=== PATIENT | female | born 1970 | race Hispanic/Latino ===

== ENCOUNTER 2021-08-23 05:50 | Day surgery (SDC) | payer BC ==
[2021-08-17 10:18] LABS: Blood Urea Nitrogen 8 mg/dL (7-17); Hemolysis Index 0
[2021-08-17 10:21] LABS: BUN/Creatinine Ratio 13
[2021-08-17 10:27] LABS: Basophils # (Auto) 0.1 K/mm3 (0.0-0.1); Eosinophils # (Auto) 0.1 K/mm3 (0.0-0.4); Eosinophils % (Auto) 2.2 % (0.0-4.3); Hematocrit 39.4 % (30.3-42.9); Hemoglobin 12.6 gm/dl (10.1-14.3); Lymphocytes # (Auto) 1.1 K/mm3 (1.2-5.4); Lymphocytes % (Auto) 38.7 % (13.4-35.0); Mean Corpuscular HGB Conc 32 % (30-34); Mean Corpuscular Volume 86 fl (79-97); Monocytes # (Auto) 0.2 K/mm3 (0.0-0.8); Monocytes % (Auto) 7.5 % (0.0-7.3); Platelet Count 289 K/mm3 (140-440); Red Blood Count 4.57 M/mm3 (3.65-5.03); Red Cell Distribution Width 15.2 % (13.2-15.2)
--- NOTE | 2021-08-17 13:11 | Anesthesia Consultation ---
Anesthesia Consult and Med Hx Date of service: 08/23/21 - Airway Anesthetic Teeth Evaluation: Good ROM Head & Neck: Adequate Mental/Hyoid Distance: Adequate Mallampati Class: Class I Intubation Access Assessment: Good - Pulmonary Exam CTA: Yes - Cardiac Exam Cardiac Exam: RRR - Pre-Operative Health Status ASA Pre-Surgery Classification: ASA1 Proposed Anesthetic Plan: General Nerve Block: TAP - Pulmonary Hx Smoking: No Hx Respiratory Symptoms: No - Cardiovascular System Hx Hypertension: No - Central Nervous System CVA: No Hx Psychiatric Problems: Yes (night terrors, panic attacks while sleeping) - Endocrine Hx Renal Disease: No Hx Liver Disease: No Hx Insulin Dependent Diabetes: No Hx Non-Insulin Dependent Diabetes: No Hx Thyroid Disease: No - Other Systems Hx Obesity: No - Additional Comments Anesthesia Medical History Comments: Hx delayed emergence.
--- NOTE | 2021-08-21 21:47 | History and Physical Report ---
History of Present Illness Date of examination: 08/14/21 History of present illness: Patient has been reassessed/reevaluated. H&P has been reviewed. No interval changes. This is a 51 years old female who presents with menstrual disorder. The symptoms began 4-6 months ago. Patient states she did not have menses 05/2021 o/w regular menses. She complains of heavy bleeding, lack of menses, dysmenorrhea, clotting, history of ovarian cysts, history of fibroids and cramping, but denies irregular menses, mid-cycle spotting, history of thyroid disease, history of PCOS, history of bleeding disorder, lightheadedness and fatigue. Menses started at age 18. Interval between menses is 28 days and 30 days. Menstrual flow lasts 7 days. Patient's work up has included hysterosonogram with a benign endometrial biopsy and revealed multiple leiomyomata and endometrial polyp. Patient's symptoms when present disrupts her normal daily activities. She is very anxious.Patient desires definitive treatment ] Vital Signs: Patient Profile: 51 Years Old Female LMP: 08/12/2021 Height: 71 inches Weight: 194 pounds BMI: 27.05 Temp: 97.4 degrees F BP sittin / 78 (left arm) Menstrual History: LMP (date): 08/12/2021 Current Method of Contraception: None Date of Last Pap Smear: 07/11/2021 Past History : 0 Term Births: 0 Premature Births: 0 Living Children: 0 Para: 0 Mult. Births: 0 Prev : 0 Aborta: 0 Elect. Ab: 0 Spont. Ab: 0 Ectopics: 0 Current Allergies (reviewed today): AMOXICILLIN (Critical) Past Medical History: Allergies-seasonal Endometrial polyps Fibroids Anxiety Past Surgical History: Hysteroscopy with D&C (2006) Hysteroscopy with D&C (2019) Family History Summary: Other Family Member - Has Family History of Ovarian Cancer - Entered On: 07/11/2021 Other Family Member - Has Family History Colon Cancer - Entered On: 07/11/2021 Other Family Member - Has Family History of Brain Cancer - Entered On: 07/11/2021 Other Family Member - Has Family History of Hyperlipidemia - Entered On: 07/11/2021 Other Family Member - Has Family History of Hypertension - Entered On: 07/11/2021 Social History: Marital Status: Children: 0 Occupation: [employer] Referred by [employer] Smoking History: Patient has never smoked. 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 Denies fever, chills, sweats, anorexia, weakness, malaise, weight loss and sleep disorder. Complains of menorrhagia, pelvic pain and painful periods. Denies vaginal discharge, incontinence, dysuria, hematuria, urinary frequency, amenorrhea, abnormal vaginal bleeding, genital sores, decreased libido, painful sex, urinary urgency, hot flashes, vaginal dryness, vaginal itching and vaginal odor. CV Denies chest pains, palpitations, syncope, dyspnea on exertion, orthopnea, PND and peripheral edema. Resp Denies cough, dyspnea at rest, excessive sputum, hemoptysis, wheezing and pleurisy. GI Denies nausea, vomiting, diarrhea, constipation, change in bowel habits, abdominal pain, melena, hematochezia, jaundice, gas/bloating, indigestion/heartburn, dysphagia and odynophagia. Breast Denies left breast lump, right breast lump, nipple discharge, bloody discharge from nipple, breast pain, abnormal mammogram and breast enlargement. Psych Complains of anxiety. Denies depression, irritability and mood swings. Past History Past Medical History: other (SEE HPI) Past Surgical History: Other (SEE HPI) Social history: full code, other (SEE HPI) Family history: other (SEE HPI) Medications and Allergies Allergies Allergy/AdvReac Type Severity Reaction Status Date / Time amoxicillin Allergy Hives Verified 08/12/21 22:06 Home Medications Medication Instructions Recorded Confirmed Last Taken Type No Known Home Medications [No 08/12/21 08/12/21 Unknown History Reported Home Medications] Active Meds: Active Medications Acetaminophen (Acetaminophen 500 Mg Tab) 1,000 mg PO PREOP RAQUEL Celecoxib (Celecoxib 200 Mg Cap) 200 mg PO PREOP NR Stop: 08/23/21 23:59 Fentanyl (Fentanyl 100 Mcg/2 Ml Inj) 100 mcg IV ONCE PRN PRN Reason: sedation for nerve block Gabapentin (Gabapentin 300 Mg Cap) 300 mg PO PREOP NR Stop: 08/23/21 23:59 Lactated Ringer's (Lactated Ringers) 1,000 mls @ 100 mls/hr IV DIRECT RAQUEL Stop: 08/23/21 23:59 Midazolam HCl (Midazolam 2 Mg/2 Ml Inj) 2 mg IV PREOP NR Stop: 08/23/21 23:59 Scopolamine (Scopolamine Transdermal Patch 72 Hr) 1 each TD PREOP NR Stop: 08/23/21 23:59 Review of Systems Constitutional: other (SEE HPI) Exam - Physical Exam Narrative exam: PHYSICAL EXAM HEENT: normocephalic, no lesions or deformities Skin no significant abnormal lesions or rashes Breasts: skin/areolae normal, no masses, no nipple discharge, no erythema/warmth/tenderness, and axillae normal. Abdomen: normal bowel sounds, soft, nontender, no HSM Neuro: no gross anomalities Extremities: no clubbing, cyanosis, or edema ADULT BASIC STUDIES TEACHER Exams Vulva/Vagina: No lesions, normal BUS, normal rugae blood in vault Cervix: No lesions; no cervical motion tenderness Uterus: enlarged uterus 8 - 10 weeks size Adnexae: no masses or tenderness Rectovaginal: Rectal exam deferred due to colonoscopy recently performed or is planned - Constitutional Vitals: Temp Pulse Resp BP Pulse Ox 98.2 F 79 20 143/95 100 08/17/21 09:05 08/17/21 09:05 08/17/21 09:05 08/17/21 09:05 08/17/21 09:05 Results - Labs CBC & Chem 7: 08/17/21 06:00 08/17/21 06:00 Assessment and Plan - Patient Problems (1) Intramural leiomyoma of uterus Current Visit: No Status: Acute Plan to address problem: Diagnosis explained to patient . Questions answered. Discussed with patient various medical, surgical and radiological therapies common for treatment including expectant management, myomectomy hysterectomy and uterine artery embolization Patient desires hysterectomy Discussed risks and benefits of laparotomy, laparoscopy, vaginal and robotic assisted approaches for hysterectomies Patient desires robotic assisted total hysterectomy. Consent reviewed and signed . The risks and alternatives for this surgery were reviewed with the patient. Discuss the risks of the surgery including infection, bleed ing possibly heavy enough to require a blood transfusion, possible damage to bowel, bladder or ureter. Patient understand that this surgery with make her sterile.Patient understands if her ovaries are removed she will become menopausal. Patient desires bilateral oophorectomy. Also if unable to complete robitcally a laparotomy may required. Patient understands and desires to proceed. (2) Menorrhagia Current Visit: No Status: Acute Qualifiers: Menorrhagia type: with regular cycle Qualified Code(s): N92.0 - Excessive and frequent menstruation with regular cycle Plan to address problem: Probably secondary to # 1 or #3 Conservative therapies have failed. Patient desires definitive treatmen (3) Endometrial polyp Current Visit: No Status: Acute Plan to address problem: Possible etiology of #2 (4) Dysmenorrhea Current Visit: No Status: Acute Plan to address problem: Probably secondary to # 1 (5) Anxiety Current Visit: No Status: Acute
[2021-08-23] MEDS ORDERED: GABAPENTIN 300 MG CAP PO NR (06:00)
[2021-08-23] MEDS ORDERED: ACETAMINOPHEN 500 MG TAB PO SCH (06:00)
[2021-08-23] MEDS ORDERED: CELECOXIB 200 MG CAP PO NR (06:00)
[2021-08-23] MEDS ORDERED: MIDAZOLAM 2 MG/2 ML INJ IV NR (06:00)
[2021-08-23] MEDS ORDERED: fentaNYL 100 MCG/2 ML INJ IV PRN (06:00)
[2021-08-23] MEDS ORDERED: SCOPOLAMINE TRANSDERMAL PATCH 72 HR TD NR (06:00)
[2021-08-23] MEDS: LACTATED RINGERS 1,000 ML IV SCH ×2 (06:40→12:10)
[2021-08-23] MEDS ORDERED: fentaNYL 100 MCG/2 ML INJ ONE (07:20)
[2021-08-23] MEDS ORDERED: LIDOCAINE MPF (2%) 20 MG/1 ML VIAL 5 ML ONE (07:20)
[2021-08-23] MEDS ORDERED: propofoL 200 MG/20 ML VIAL IV ONE (07:20)
[2021-08-23] MEDS ORDERED: ROCURONIUM 50 MG/5 ML INJ IV ONE ×2 (07:21→09:37)
[2021-08-23] MEDS ORDERED: dexAMETHasone 4 MG/ML VIAL ONE (07:29)
[2021-08-23] MEDS ORDERED: BUPIVACAINE/PF (0.25%) 2.5 MG/ML 30 ML VIAL INFILTRATI ONE (07:29)
--- NOTE | 2021-08-23 07:33 | Anesthesia Day of Surgery ---
Anesthesia Day of Surgery - Day of Surgery Patient Examined: Yes Patient H&P Reviewed: Yes Patient is NPO: Yes
[2021-08-23] MEDS ORDERED: LIDOCAINE (1%) 10 MG/1 ML VIAL 20 ML MDV ONE (07:34)
[2021-08-23] MEDS ORDERED: GENTAMICIN/NS 80 MG/100 ML 100 ML IV SCH (08:00)
[2021-08-23] MEDS ORDERED: ONDANSETRON 4 MG/2 ML INJ IV PRN (08:00)
[2021-08-23] MEDS ORDERED: CLINDAMYCIN 600 MG/50 mL 600 MG/50 ML BAG IV NR (08:00)
[2021-08-23] MEDS ORDERED: HYDROmorphone 1 MG/1 ML INJ IV PRN (08:00)
[2021-08-23] MEDS ORDERED: NEOMY 40 MG/POLYMYXIN B 200,000 UNITS/ML (GU) AMPULE IR ONE ×2 (08:01→09:43)
[2021-08-23] MEDS ORDERED: KETAMINE/STERILE WATER 50 MG/ML SYRINGE ONE (08:46)
[2021-08-23] MEDS ORDERED: dexAMETHasone 20 MG/5 ML VIAL ONE (08:47)
[2021-08-23] MEDS ORDERED: SODIUM CHLORIDE 0.9% IRR 1,500 ML BOTTLE IR ONE (09:44)
[2021-08-23] MEDS ORDERED: SODIUM CHLORIDE 0.9% IRRIG SOLN 2000 ML IR ONE (09:44)
[2021-08-23] MEDS ORDERED: GENTAMICIN 350 MG in SODIUM CHLORIDE 0.9% 100 ML IV SCH (10:00)
[2021-08-23] MEDS ORDERED: NEOSTIGMINE 10MG/10 ML INJ MDV ONE (10:44)
[2021-08-23] MEDS ORDERED: ONDANSETRON 4 MG/2 ML INJ ONE (10:45)
[2021-08-23] MEDS ORDERED: GLYCOPYRROLATE 0.4 MG/2 ML INJ ONE ×2 (10:45)
[2021-08-23] MEDS ORDERED: HYDROcodone/ACETAMINOPHEN 5-325 MG TAB PO PRN (11:23)
[2021-08-23] MEDS ORDERED: ACETAMINOPHEN 325 MG TAB PO PRN (11:23)
[2021-08-23] MEDS: HYDROmorphone 1 MG/1 ML INJ IV PRN ×4 (11:25→13:30)
[2021-08-23] MEDS ORDERED: ESTRADIOL 0.1 MG/24 HR PATCH WEEKLY TD ONE (11:34)
--- NOTE | 2021-08-23 12:07 | Operative Report ---
Operative Report Operative Report: Operative Report: Date of procedure: August 23, 2021 Pre-operative diagnosis: Symptomatic leiomyomata with dysmenorrhea menorrhalgia and endometrial polyp Post-operative diagnosis: Same Procedure name(s): Robotic assisted total hysterectomy with bilateral salpingo- oophorectomy Surgeon: Emil Huang MD Core Composer Feeder: Carleen Galdamez MD Anesthesia: General EBL: 50 mL Complications: None Findings: Uterus approximately 8 to 10 weeks weeks in size with leiomyomata normal tubes and ovaries bilaterally Specimen(s): Uterus including cervix was bilateral adnexa Procedure: Patient was brought to the operating room where general anesthesia was induced without difficulty. Patient was placed in the dorsal lithotomy position. Prepped and draped in the usual sterile manner for robotic procedure. Pineda catheter was placed without difficulty. Speculum was placed in the vagina. A medium V-Care Uterine manipulator was placed without difficulty. Attention was now switched to the patient's abdomen. A vertical supra-umbilicus incision was made with a scalpel. A 10-12 trocar was placed in this incision under direct visualization. Intra-abdominal placement was verified with no evidence of internal organ damage. The patient was insufflated approximately 3-1/2 L of CO2 gas. She was placed in Trendelenburg position. The patient pelvic findings were noted as above. It was determined that the patient was a candidate for robotic procedure. On both sides the umbilical incision at about 8 cm, incisions were made for robotic trocars. Each robotic trocar was placed under direct visualization with no evidence of internal organ damage. One 5 mm trocar was placed 2 fingerbreadths above the right iliac crest. A 5 mm camera was placed in the right lower quadrant trocar, the 10-12 trocar was removed and a Erlin Saini laparoscopic port closure device was placed through this incision under direct visualization with no evidence of internal organ damage. The camera was then replaced into this port. At this time the patient was placed in extreme Trendelenburg. The da Ramona robot was then docked on the patient's left side. The trocars connected to the robot appropriately robotic instruments were placed under direct visualization no evidence of internal organ damage.. At this time I took my place under the robotic operating goodman. Starting on the patient's right side the right ureter was clearly seen out of the operative field. The ovarian vessels were clearly seen cauterize and cut robotic vessel sealer. The meso salpinx were cauterized and cut reaching to the round ligament. The round ligament was cauterized and cut. The leaves of the broad ligament on that side was anteriorly and posteriorly. The anterior leaves were use to form a bladder flap anteriorly the posterior leaf was cut exposing the uterine vessels on that side. The uterine vessels were cauterized and cut the bladder flap was more clearly made. Attention was then switched to the patient's left side. Where the ureter was again identified and cleared out of the field. The same procedure was cauterized and cut and the ovarian vessels and receiving with some incising the round ligament broad the broad ligament then cauterized and cut and the uterine vessels were performed.. At this time the uterus was appearing very cyanotic. After inspecting the bladder flap insured no evidence of bladder injury, the colpotomy was then started using robotic unipolar scissors. Incision started at 6:00 until the V-Care could be seen. This incision was extended from 6:00 to 9:00. Then from 6:00 to 3:00. Then from 9:00 to 12:00. This incision was extended from 3:00 to 12:00. At this time colpotomy was complete with no evidence of adjacent organ damage. The speech correction assistant remove the uterus from through the colpotomy site. The vaginal cuff was irrigated and cauterized and found to be hemostatic. The cuff was closed with roboticly using 0 V- Lock suture. This closure was hemostatic after irrigation and Bovie. All pedicles were inspected and found to be hemostatic. The ureters were identified bilaterally and found to be functioning normal. The Pineda bag had clear yellow urine. Surgicel powder is placed across the vaginal cuff. All instruments were then removed. The large trocar sites were closed in layers 2-0 and 4-0 Vicryl. The smaller incisions were closed subcuticularly with 4-0 Vicryl. The patient tolerated procedure well. She was awakened in the operating room and accompanied to the recovery room in good condition.
[2021-08-23 15:50] VITALS: BP 126/79
--- NOTE | 2021-08-23 18:28 | Post Anesthesia Evaluation ---
- Post Anesthesia Evaluation Patient Participated: Yes Airway Patent: Yes Stable Respiratory Function: Yes Nausea/Vomiting: No Temp > 96.8F: Yes Pain Manageable: Yes Adequeate Hydration: No Anesthesia Complications: No Block Receding Appropriately: Yes Patient on Ventilator: No
--- NOTE | 2021-08-23 18:36 | Short Stay Summary ---
Short Stay Documentation Date of service: 08/23/21 - History Past Medical History: other (SEE HPI) Past Surgical History: Other (SEE HPI) Social history: full code, other (SEE HPI) - Allergies and Medications Current Medications: Allergies amoxicillin Allergy (Verified 08/12/21 22:06) Hives Home Medications Medication Instructions Recorded Confirmed Last Taken Type Estradiol [Minivelle 0.025mg/24hr] 1 each TD 2XW #24 patch.tdsw 08/23/21 Unknown Rx oxyCODONE /ACETAMINOPHEN [Percocet 1 - 2 tab PO Q6HR PRN #20 tablet 08/23/21 Unknown Rx 5/325 mg] - Disposition Condition at discharge: Good Disposition: 01 HOME / SELF CARE / HOMELESS - Discharge Diagnoses (1) Intramural leiomyoma of uterus Status: Acute (2) Menorrhagia Status: Acute Qualifiers: Menorrhagia type: with regular cycle Qualified Code(s): N92.0 - Excessive and frequent menstruation with regular cycle (3) Endometrial polyp Status: Acute (4) Dysmenorrhea Status: Acute (5) Anxiety Status: Acute Short Stay Discharge Plan Additional Instructions: Keep appointment with Dr Haung call Dr Huang for all questions and concerns Follow up with: DR YIFAN [Other] - 7 Days Forms: Outpatient [facility] Prescriptions: Estradiol [Minivelle 0.025mg/24hr] 1 each TD 2XW #24 patch.tdsw oxyCODONE /ACETAMINOPHEN [Percocet 5/325 mg] 1 - 2 tab PO Q6HR PRN #20 tablet PRN Reason: Pain
== END 2021-08-23 15:25 | disposition home or self-care (01) ==
LOC: OR 05:50
PROVIDERS: ATTEND Obstetrics & Gynecology
DX: N92.0 Excessive and frequent menstruation with regular cycle (principal); N94.6 Dysmenorrhea, unspecified; D25.0 Submucous leiomyoma of uterus; D25.1 Intramural leiomyoma of uterus; N84.1 Polyp of cervix uteri; N80.0 Endometriosis of uterus; N72 Inflammatory disease of cervix uteri; N83.8 Other noninflammatory disorders of ovary, fallopian tube and broad ligament; Z20.822 Contact with and (suspected) exposure to COVID-19; F41.0 Panic disorder [episodic paroxysmal anxiety]; Z88.1 Allergy status to other antibiotic agents; Z79.899 Other long term (current) drug therapy; Z98.890 Other specified postprocedural states
CPT/HCPCS: 36415; 58571; 64488; 80048; 84703; 85025; 86850; 86900; 86901; 88307; A4217; J1100; J1170; J1580; J2250; J2405; J2704; J2710; J3010; J3490; J7120; S2900; U0003; 64450

== ENCOUNTER 2021-09-28 15:40 | Emergency (ER) | payer BC ==
[2021-09-28] MEDS ORDERED: MORPHINE 4 MG/1 ML INJ IV ONE (16:49)
[2021-09-28] MEDS ORDERED: ONDANSETRON 4 MG/2 ML INJ IV ONE (16:49)
[2021-09-28] MEDS ORDERED: SODIUM CHLORIDE 0.9% 1000 ML 1,000 ML IV ONE (16:49)
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
[2021-09-28 17:40] LABS: Basophils % (Auto) 0.8 % (0.0-1.8); Eosinophils # (Auto) 0.1 K/mm3 (0.0-0.4); Eosinophils % (Auto) 2.1 % (0.0-4.3); Hematocrit 39.8 % (30.3-42.9); Hemoglobin 12.5 gm/dl (10.1-14.3); Lymphocytes # (Auto) 1.6 K/mm3 (1.2-5.4); Lymphocytes % (Auto) 42.2 % (13.4-35.0); Mean Corpuscular HGB Conc 31 % (30-34); Mean Corpuscular Volume 87 fl (79-97); Monocytes # (Auto) 0.3 K/mm3 (0.0-0.8); Monocytes % (Auto) 8.3 % (0.0-7.3); Platelet Count 235 K/mm3 (140-440); Red Blood Count 4.58 M/mm3 (3.65-5.03); Red Cell Distribution Width 14.8 % (13.2-15.2)
[2021-09-28 18:02] LABS: Alanine Aminotransferase 12 units/L (7-56); Albumin 4.2 g/dL (3.9-5); Blood Urea Nitrogen 10 mg/dL (7-17); Calcium 9.1 mg/dL (8.4-10.2); Hemolysis Index 76
[2021-09-28 18:09] LABS: BUN/Creatinine Ratio 20; Bilirubin,Direct < 0.2 mg/dL (0-0.2)
--- NOTE | 2021-09-28 19:26 | Cat Scan Report ---
CT ABDOMEN AND PELVIS WITH IV CONTRAST INDICATION: bilateral flank pain. COMPARISON: None available. TECHNIQUE: All CT scans at this facility use dose modulation, automated exposure control, iterative reconstructi on or weight based dosing, when appropriate, to reduce radiation dose to as low as reasonably achieva ble. FINDINGS: Lung Bases: No significant abnormality. Skeletal System: No acute abnormality. ABDOMEN: Liver: No significant abnormality. There is a punctate cyst in the right lobe. Gallbladder: There is a punctate gallstone. Bile Ducts: No significant abnormality. Adrenals: No significant abnormality. Right Kidney: Punctate cysts are noted. There is a punctate stone in the lower pole collecting system . Left Kidney: There is a punctate upper pole cyst. No acute finding. Pancreas: No significant abnormality. Spleen: No significant abnormality. Upper GI tract: There is a small hiatal hernia. Otherwise the upper GI tract is unremarkable. Lymph Nodes: No significant adenopathy. Aorta: No significant abnormality. Additional Findings: There is a tiny fat-containing umbilical hernia. PELVIS: Colon: No acute abnormality. Urinary Bladder and Distal Ureters: No significant abnormality. Appendix: No significant abnormality. Lymph Nodes: No significant adenopathy. Additional Findings: None. IMPRESSION: 1. No acute process in the abdomen or pelvis. 2. Incidental findings, as above. Signer Name: Sal Sanchez MD Signed: 09/28/2021 7:22 PM Workstation Name: [id number]
--- NOTE | 2021-09-28 19:40 | XRay Report ---
CHEST PA AND LATERAL VIEWS INDICATION: flank pain. COMPARISON: None. FINDINGS: Support devices: None. Heart: Within normal limits. Lungs/Pleura: No acute pulmonary or pleural findings. IMPRESSION: 1. No acute findings. Signer Name: Sal Sanchez MD Signed: 09/28/2021 7:35 PM Workstation Name: [id number]
[2021-09-28 20:20] LABS: HCG Qualitative,Urine Negative (Negative)
[2021-09-28 20:46] LABS: Bilirubin,Urine NEG (Negative); Blood,Urine NEG (Negative); Color,Urine Yellow (Yellow); Mucus,Urine 1+ /HPF; Protein,Urine <15 mg/dL mg/dL (Negative); RBC,Urine < 1.0 /HPF (0.0-6.0); Urobilinogen,Urine < 2.0 mg/dL (<2.0)
[2021-09-28 21:30] VITALS: BP 136/82
== END 2021-09-28 21:24 | disposition home or self-care (01) ==
LOC: ED 15:40
DX: K80.80 Other cholelithiasis without obstruction (principal); G43.909 Migraine, unspecified, not intractable, without status migrainosus; Z88.1 Allergy status to other antibiotic agents
CPT/HCPCS: 36415; 71046; 74177; 80048; 80076; 81001; 81025; 83690; 85025; 96361; 96374; 96375; 99284; J2270; J2405; J7030; Q9967; Q0162

== ENCOUNTER 2021-10-03 07:33 | Outpatient (CLI) | payer BC ==
--- NOTE | 2021-10-03 09:51 | Ultrasound Report ---
ULTRASOUND ABDOMEN, COMPLETE INDICATION: ABDOMINAL PAIN. COMPARISON: None available. FINDINGS: Pancreas: Normal. Abdominal Aorta: Normal. IVC: Normal. Liver: Increased echogenicity diffusely. Gallbladder: Possible sludge versus small stones at the gallbladder neck. Bile ducts: Normal. Common Bile Duct measures 2.5 mm. Right Kidney: Normal. Left Kidney: Normal. Spleen: Normal. Free fluid: None. Additional Findings: None. IMPRESSION: 1. Possible sludge versus small stones of the gallbladder neck. This area is not well evaluated. 2. No wall thickening or biliary dilatation. 3. Fatty liver. Signer Name: Juan Hutton MD Signed: 10/03/2021 9:46 AM Workstation Name: [id number]
== END 2021-10-03 07:34 | disposition home or self-care (01) ==
LOC: US 07:33
PROVIDERS: ATTEND Obstetrics & Gynecology
DX: K76.0 Fatty (change of) liver, not elsewhere classified (principal); R10.11 Right upper quadrant pain; R14.0 Abdominal distension (gaseous)
CPT/HCPCS: 76700

== ENCOUNTER 2021-10-09 07:12 | Day surgery (SDC) | payer BC ==
[~2021-10-09 07:12] MED LIST: LACTATED RINGERS 1,000 ML IV SCH; LACTATED RINGERS 1,000 ML ONE; VANCOMYCIN/NS 1 GM/250 ML 1 GM/250 ML BAG IV NR
[2021-10-09] MEDS ORDERED: LIDOCAINE MPF (2%) 20 MG/1 ML VIAL 5 ML ONE (07:20)
[2021-10-09] MEDS ORDERED: HYDROmorphone 1 MG/1 ML INJ ONE ×2 (07:20→08:38)
[2021-10-09] MEDS ORDERED: ONDANSETRON 4 MG/2 ML INJ ONE (07:20)
[2021-10-09] MEDS ORDERED: dexAMETHasone 20 MG/5 ML VIAL ONE (07:20)
[2021-10-09] MEDS ORDERED: ROCURONIUM 50 MG/5 ML INJ IV ONE (07:20)
[2021-10-09] MEDS ORDERED: fentaNYL 100 MCG/2 ML INJ ONE (07:21)
[2021-10-09] MEDS ORDERED: propofoL 200 MG/20 ML VIAL IV ONE (07:21)
[2021-10-09] MEDS ORDERED: LIDOCAINE (1%) 10 MG/1 ML VIAL 20 ML MDV ONE (07:42)
[2021-10-09] MEDS ORDERED: MIDAZOLAM 2 MG/2 ML INJ ONE (07:43)
[2021-10-09] MEDS ORDERED: BUPIVACAINE/PF (0.5%) 5 MG/1 ML 30 ML VIAL INFILTRATI ONE (07:43)
[2021-10-09] MEDS ORDERED: KETOROLAC 30 MG/1 ML INJ ONE (08:15)
[2021-10-09] MEDS ORDERED: GLYCOPYRROLATE 0.4 MG/2 ML INJ ONE (08:42)
[2021-10-09] MEDS ORDERED: NEOSTIGMINE 10MG/10 ML INJ MDV ONE (08:42)
[2021-10-09] MEDS ORDERED: LIDOCAINE (1%) 10 MG/1 ML VIAL 20 ML MDV INFILTRATI ONE (08:47)
[2021-10-09] MEDS ORDERED: BUPIVACAINE/PF (0.5%) 5 MG/1 ML 10 ML VIAL INFILTRATI ONE (08:47)
--- NOTE | 2021-10-09 09:08 | Short Stay Summary ---
Short Stay Documentation Date of service: 10/09/21 - History Principal diagnosis: symptomatic cholelithiasis H&P: obtained from office - Allergies and Medications Current Medications: Allergies amoxicillin Allergy (Verified 10/05/21 12:56) Nausea , rash Home Medications Medication Instructions Recorded Confirmed Last Taken Type Estradiol [Minivelle 0.025mg/24hr] 1 each TD 2XW #24 patch.tdsw 08/23/21 10/05/21 Unknown Rx - Brief post op/procedure progress note Date of procedure: 10/09/21 Pre-op diagnosis: symptomatic cholelithaisis Post-op diagnosis: same Procedure: laparoscopic cholecystectomy Anesthesia: GETA, local Findings: Small stone at neck of gallbladder Surgeon: OSVALDO ALICEA Power Generation Equipment Repairer: SANDRA BARRERA Estimated blood loss: minimal Pathology: list (gallbladder) Specimen disposition: to lab Condition: stable - Hospital course Hospital course: Pt observed in PACU and discharged to home in stable condition when criteria met - Disposition Condition at discharge: Good Disposition: 01 HOME / SELF CARE / HOMELESS Short Stay Discharge Plan Activity: other (no heavy lifting for 1 week) Diet: regular Wound: open to air, per your surgeon's advice Additional Instructions: SEE PRINTED PAPERWORK Follow up with: GERRY SAHA MD [Primary Care Provider] - 7 Days OSVALDO ALICEA DO [Staff Physician] - 14 Days
--- NOTE | 2021-10-09 10:55 | Operative Report ---
Operative Report Operative Report: Date of procedure: 10/09/21 Pre-op diagnosis: symptomatic cholelithaisis Post-op diagnosis: same Procedure: laparoscopic cholecystectomy Anesthesia: GETA, local Findings: Small stone at neck of gallbladder Surgeon: OSVALDO ALICEA Pillowcase Cutter: SANDRA BARRERA Estimated blood loss: minimal Pathology: list (gallbladder) Specimen disposition: to lab Condition: stable Hospital course: Pt observed in PACU and discharged to home in stable condition when criteria met Condition at discharge: Good Disposition: 01 HOME / SELF CARE / HOMELESS HPI and indication: Patient is a 51-year-old female who presented to surgery clinic with complaints of right upper quadrant abdominal pain. Pain was associated with food. Work-up including labs, CT scan of the abdomen and pelvis, ultrasound of the abdomen were performed. Patient was found to have gallstones near the neck of the gallbladder. It was recommended she undergo cholecystectomy. All risks, benefits, alternatives to surgery were discussed and questions answered. Consent obtained. Procedure in detail: The patient was identified in the preoperative area and taken back to the operating room, placed on the operating room table in supine position. After anesthesia was induced, the abdomen was prepped and draped in usual sterile fashion and timeout was performed. Local anesthetic was infiltrated into all of the skin incision sites. A supraumbilical incision was made through which a Veress needle was inserted. The Veress needle positioning was confirmed using saline drop test and the abdomen insufflated to 15 mmHg without incident. The Veress needle was then removed and a 5 mm Optiview trocar placed through this incision. The abdomen was inspected and there was no underlying injury to any of the abdominal structures. An additional 12 mm subxyphoid port, 5 mm supraumbilical, 5 mm right upper quadrant air seal port, and 5 mm right lateral abdominal port were placed under direct visualization. There were some omental adhesions to the left lateral abdominal wall which were taken down using EndoShears in order to facilitate right lateral port placement. The patient was then placed into reverse Trendelberg and tilted to the left. The gallbladder fundus was grasped and retracted cephalad and above the liver. The infundibulum was grasped and retracted laterally. The cystic duct and artery were carefully skeletonized. The medial and lateral peritoneal attachments to the gallbladder were dissected using a combination of blunt dissection with the [place] and hook electrocautery. The cystic duct and artery were the only 2 structures seen entering the gallbladder and the critical view was successfully obtained. 3 clips were placed on the proximal aspect of the cystic duct and 1 distally and this was transected in between the clips using EndoShears. 2 clips were placed on the proximal aspect of the cystic artery and 1 distally this was transected in between the clips using EndoShears. The gallbladder was dissected from the liver bed using electrocautery. The gallbladder was placed into a Endo Catch bag and removed from the abdomen via the 12mm port. The gallbladder fossa was then inspected and there was no identifiable bleeding or bile leakage. Hemostasis was ensured. The clips on the cystic duct and artery were visualized and intact. The patient was then placed into neutral position. The 12 mm port fascia was closed with interrupted 0 Vicryl suture using the Erlin Saini device. The remaining ports were removed under direct visualization. Skin incisions were closed with 4-0 Monocryl subcuticular stitches and skin glue. All skin incisions were once again infiltrated with local anesthetic. The gallbladder was examined on the back table and contained a small stone lodged in the neck of the gallbladder. At the end case all sponge, instrument, sharp counts were correct 2. The patient was awoken from anesthesia, extubated, and taken to PACU in stable condition.
[2021-10-09] MEDS ORDERED: SCOPOLAMINE TRANSDERMAL PATCH 72 HR TD ONE (11:00)
--- NOTE | 2021-10-09 17:17 | Anesthesia Day of Surgery ---
Anesthesia Day of Surgery - Day of Surgery Patient Examined: Yes Patient H&P Reviewed: Yes Patient is NPO: Yes
--- NOTE | 2021-10-09 17:19 | Post Anesthesia Evaluation ---
- Post Anesthesia Evaluation Patient Participated: Yes Airway Patent: Yes Stable Respiratory Function: Yes Nausea/Vomiting: No Temp > 96.8F: Yes Pain Manageable: Yes Adequeate Hydration: Yes Anesthesia Complications: No Block Receding Appropriately: Not Applicable Patient on Ventilator: No
--- NOTE | 2021-10-09 17:19 | Anesthesia Consultation ---
Anesthesia Consult and Med Hx Date of service: 10/09/21 - Airway Anesthetic Teeth Evaluation: Good ROM Head & Neck: Adequate Mental/Hyoid Distance: Adequate Mallampati Class: Class II Intubation Access Assessment: Good - Pre-Operative Health Status ASA Pre-Surgery Classification: ASA1 Proposed Anesthetic Plan: General - Pulmonary Hx Smoking: No Hx Respiratory Symptoms: No Hx Sleep Apnea: No (JAYANT PRE SCREEN NEGATIVE) - Cardiovascular System Hx Hypertension: No - Central Nervous System CVA: No Hx Psychiatric Problems: Yes (HX PANIC ATTACKS- NO MEDS) - Endocrine Hx Renal Disease: No Hx Liver Disease: No Hx Insulin Dependent Diabetes: No Hx Non-Insulin Dependent Diabetes: No Hx Thyroid Disease: No - Hematic Hx Anemia: No - Other Systems Hx Alcohol Use: Yes (Occas) Hx Cancer: No Hx Obesity: No - Additional Comments Anesthesia Medical History Comments: Hx delayed emergence. Was here [id number]
[2021-10-09 19:10] VITALS: BP 132/75
== END 2021-10-09 10:54 | disposition home or self-care (01) ==
LOC: OR 07:12
PROVIDERS: ATTEND Surgery
DX: K80.10 Calculus of gallbladder with chronic cholecystitis without obstruction (principal); K21.9 Gastro-esophageal reflux disease without esophagitis; F41.9 Anxiety disorder, unspecified; D25.1 Intramural leiomyoma of uterus; Z90.710 Acquired absence of both cervix and uterus; Z98.890 Other specified postprocedural states; Z79.899 Other long term (current) drug therapy; Z20.822 Contact with and (suspected) exposure to COVID-19; Z88.1 Allergy status to other antibiotic agents; Z72.89 Other problems related to lifestyle
CPT/HCPCS: 47562; 88304; J1100; J1170; J1815; J1885; J2250; J2405; J2704; J2710; J3010; J3370; J3490; J7120; U0003

== ENCOUNTER 2022-04-16 09:48 | Outpatient (CLI) | payer BC ==
[2022-04-16 12:16] LABS: Basophils % (Auto) 0.6 % (0.0-1.8); Eosinophils % (Auto) 0.7 % (0.0-4.3); Hematocrit 45.2 % (30.3-42.9); Hemoglobin 15.1 gm/dl (10.1-14.3); Lymphocytes # (Auto) 2.1 K/mm3 (1.2-5.4); Lymphocytes % (Auto) 40.7 % (13.4-35.0); Mean Corpuscular HGB Conc 33 % (30-34); Mean Corpuscular Volume 91 fl (79-97); Monocytes # (Auto) 0.5 K/mm3 (0.0-0.8); Platelet Count 246 K/mm3 (140-440); Red Blood Count 4.96 M/mm3 (3.65-5.03); Red Cell Distribution Width 13.8 % (13.2-15.2)
[2022-04-16 12:31] LABS: Alanine Aminotransferase 13 units/L (7-56); Blood Urea Nitrogen 13 mg/dL (7-17); Calcium 10.3 mg/dL (8.4-10.2); Chol/HDL Ratio 3.01 %; HDL Cholesterol 87 mg/dL (40-59); Hemolysis Index 20; LDL Cholesterol,Direct 166 mg/dL (50-130)
[2022-04-16 12:32] LABS: BUN/Creatinine Ratio 19
[2022-04-19 16:13] LABS: Vitamin D, 25-OH, D2 <4 ng/mL
== END 2022-04-16 09:49 | disposition home or self-care (01) ==
LOC: LABHHL 09:48
PROVIDERS: ATTEND Internal Medicine
DX: Z00.00 Encounter for general adult medical examination without abnormal findings (principal); E78.5 Hyperlipidemia, unspecified; E55.9 Vitamin D deficiency, unspecified; E66.3 Overweight; R53.83 Other fatigue
CPT/HCPCS: 36415; 80053; 80061; 82306; 84443; 85025

== ENCOUNTER 2022-05-09 13:08 | Outpatient (CLI) | payer BC ==
--- NOTE | 2022-05-10 18:18 | Mammography Report ---
DIGITAL SCREENING MAMMOGRAM WITH CAD, 05/09/2022 CLINICAL INFORMATION / INDICATION: Routine screening mammography. TECHNIQUE: Digital bilateral 2D mammography was obtained in the craniocaudal and mediolateral obliqu e projections. This examination was interpreted with the benefit of Computer-Aided Detection analysis . COMPARISON: None available. FINDINGS: Breast Density: The breasts are heterogeneously dense, which may obscure small masses. No dominant mass, suspicious calcifications, or architectural distortion in either breast. IMPRESSION: No mammographic evidence of malignancy. Follow up recommendation: Routine yearly screening mammogram. BI-RADS Category 1: NEGATIVE A "normal" or negative report should not discourage follow up or biopsy of a clinically significant f inding. A written summary of these findings will be mailed to the patient. The patient will be entered into a mammography reporting system which will generate a reminder letter for the patient's next appointmen t at the appropriate interval. The [employer] recommends yearly mammograms starting at age 40 and continuing as l [place] as a woman is in good health. Breast MRI is recommended for women with an approximate 20-25% or greater lifetime risk of breast cancer, including women with a strong family history of breast or ova serafin cancer or who have been treated for Hodgkin's disease. Signer Name: Kristine Thomas MD Signed: 05/10/2022 6:14 PM Workstation Name: [email or web address]
== END 2022-05-09 13:09 | disposition home or self-care (01) ==
LOC: MAMMO 13:08
PROVIDERS: ATTEND Internal Medicine
DX: Z12.31 Encounter for screening mammogram for malignant neoplasm of breast (principal)
CPT/HCPCS: 77067